=== PATIENT | female | born 1950 | race African-American/Black ===

== ENCOUNTER 2021-06-05 12:52 | Inpatient (IN) | payer OTHER, MEDICARE ==
[~2021-06-05] VITALS: Ht 157.5 cm; Wt 74.8 kg
[2021-06-05 12:52] VITALS: BP 125/69
[~2021-06-05 12:52] MED LIST changes: -NORCO5 PO; -TRAMADOL 50 MG50 MG PO
[2021-06-05 15:19] LABS: ABSOLUTE NEUTROPHILS 6.3 thou/uL (1.4-8.2); EOSINOPHILS 0.9 % (0.0-3.0); HEMATOCRIT 41.2 % (37.0-47.0); LYMPHOCYTES 29.5 % (24.0-44.0); MCH 31.7 pg (26.0-34.0); MCV 93.3 fL (80.0-100.0); MONOCYTES 4.7 % (1.0-8.0); PLATELET COUNT 332 thou/uL (150-400); POLYS 63.9 % (36.0-66.0); RBC 4.42 mil/uL (4.20-5.00); RDW 13.4 % (10.5-14.5); WBC 9.8 thou/uL (4.0-11.0)
[2021-06-05 15:30] LABS: CALCIUM 8.9 mg/dL (8.5-10.1); POTASSIUM 3.6 mmol/L (3.5-5.1)
[2021-06-05 15:36] LABS: ALBUMIN 3.5 g/dL (3.4-5.0); TOTAL BILIRUBIN 0.4 mg/dL (0.2-1.0); TOTAL PROTEIN 7.6 g/dL (6.4-8.2)
--- NOTE | 2021-06-05 17:46 | NUR ---
spoke with dr rojo. told him pt at at 12. he said he was hoping to do her surgery but needed 8 hours and would figure out what he needed to do
--- NOTE | 2021-06-06 04:33 | NUR ---
PT ARRIVED TO UNIT APPROX 2127, PT DROWSY/SEDATED, BELONGINGS LOGGED, ADMISSION PACKET PROVIDED, PT ORIENTED TO ROOM, CONSENTS TO BE OBTAINED AT A LATER TIME. UPON ADMISSION ASSESSMENT, PT REMAINS DROWSY/SEDATED, OTHERWISE AOX4, ANSWERING ORIENTATION PROMPTS APPROPRIATELY. PT REPORTS 3-4/10 PAIN IN LLQ OF ABDOMEN. PT RECEIVING PRN IV DILAUDID Q2HR WITH PRN PO TRAMADOL Q6HR AVAILABLE. PT DENIES SOB WHILE ON 2L O2 VIA NC. PT WITHOUT PO INTAKE, DUE TO REPORTS OF NAUSEA WITHOUT EMESIS. PT RECEIVING PRN ZOFRAN Q6HR. PT AMBULATING WITH X1 ASSIST TO BATHROOM, OTHERWISE VOIDING PER BEDPAN, LIGHT YELLOW URINE NOTED. PT RESTING IN BED THROUGHOUT SHIFT, FREQUENT REPOSITIONING ENCOURAGED, PT NOTED TO SHIFT SLIGHTLY ON HER OWN, REPOSITIONING ASSISTANCE PROVIDED. SENSATION INTACT, CAPILLARY REFILL LESS THAN 3SEC, PERIPHERAL PULSES PALPABLE IN ALL EXTREMITIES. PT ENCOURAGED TO NOTIFY STAFF FOR ALL NEEDS, CALL LIGHT WITHIN REACH, BED ALARM ON, BED LOCKED IN LOWEST POSITION, ROOM REMAINS NEAR NURSES STATION, FREQUENT MONITORING WILL CONTINUE.
[2021-06-06 05:14] VITALS: BP 127/73
[2021-06-06 06:06] LABS: HEMATOCRIT 41.2 % (37.0-47.0); HEMOGLOBIN 13.8 gm/dL (12.0-15.0); MCH 31.4 pg (26.0-34.0); MCHC 33.3 g/dL (28.0-37.0); MCV 94.2 fL (80.0-100.0); RBC 4.38 mil/uL (4.20-5.00); RDW 13.8 % (10.5-14.5); WBC 11.2 thou/uL (4.0-11.0)
[2021-06-06 06:33] LABS: ALBUMIN 3.4 g/dL (3.4-5.0); CALCIUM 8.6 mg/dL (8.5-10.1); PHOSPHORUS 2.9 mg/dL (2.6-4.7); POTASSIUM 3.4 mmol/L (3.5-5.1)
[2021-06-06 08:41] VITALS: BP 121/66
--- NOTE | 2021-06-06 10:15 | NUR ---
Assumed care of pt at 0700. Pt a&ox4. Incisions clean and well-approximated. Pain controlled with prn pain medicaitions. IVF infusing Possible d/c to home later today. Call light within reach. Will continue to monitor.
--- NOTE | 2021-06-06 12:01 | EKG ---
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: PACO : 1950 Requested By: Erich Marte Order Number: [id number] MD: Cristopher Dunlap Measurements Intervals [place] Rate: 63 P: 13 MI: 109 QRS: 51 QRSD: 93 T: 5 QT: 421 QTc: 431 Interpretive Statements Sinus rhythm Short MI interval Borderline T wave abnormalities Compared to ECG 11/14/2014 14:09:46 T-wave abnormality now present Electronically Signed On 06-06-2021 12:01:41 [employer] by Cristopher Dunlap [email or web address] <ELECTRONICALLY SIGNED> By: Cristopher Dunlap MD, [facility] 06/06/21 1201 1603 02 Cristopher Dunlap MD, FACC /EPI
[2021-06-06] MEDS ORDERED: NORCO5 PO (12:27)
[2021-06-06 12:33] VITALS: BP 121/66
[2021-06-06] MEDS ORDERED: TRAMADOL 50 MG50 MG PO (13:42)
--- NOTE | 2021-06-10 16:06 | PATH ---
[facility] [place] [address] PATHOLOGY RPT PROCEDURE Name: CLIFF HUSTON Room #: 445-P [facility] IN M.R.#: [id number] Admission: 06/05/21 Date of : 54 Discharge: 06/06/21 Report #: [id number] Path Case #: [id number] [facility] Accession Number: [id number] . 01 Material submitted: . appendix - APPENDIX . 01 Clinical history: . LAPAROSCOPIC APPENDECTOMY APPENDICITIS . 02 Diagnosis: Appendix, appendectomy: - Acute appendicitis with serositis. . (ANK:kandace; 06/10/2021) [facility] 06/10/2021 1132 Local . 02 Electronically signed: . Margie Zhang MD, Pathologist NPI- [id number] . 01 Gross description: . Fixative: Formalin Labeled: Appendix Appendix length: 5.6 cm Appendix diameter: 1.2 cm Mesoappendix: 1.7 cm Proximal margin: Stapled Serosa: Nash-siu and smooth to slightly roughened Cut surface: Pinpoint to dilated Luminal diameter: Up to 0.5 cm Perforation: None identified Lesions/abnormalities: None identified . Proximal margin and bisected tip in cassette A1. Additional small business representative cross-sections in cassette A2. ([facility]; 06/09/2021) NRI/NRI 06/09/2021 2107 Local . 02 Pathologist provided ICD-10: K35.80, K65.8 . 02 CPT . 272725 Specimen Comment: A courtesy copy of this report has been sent to [phone] Specimen Comment: Report sent to [address] [address] PATHOLOGY RPT PROCEDURE Name: CLIFF HUSTON Room #: 445-P DIS IN M.R.#: [id number] Admission: 06/05/21 Date of : 54 Discharge: 06/06/21 Report #: [id number] Path Case #: [id number] [facility] at: [facility] [address] [facility] [address], [place] [id number] MD Josh Oniell MD Phone: [phone] Performed at: [address] [id number] Zhang DR Phone: [phone]
== END 2021-06-06 13:16 | disposition home or self-care (01) | DRG 343 ==
LOC: ER 12:52 → EROBS 18:18 → 4S 21:28
PROVIDERS: Emergency Medicine; ADMIT Surgery; ATTEND Surgery
PROC: 0DTJ4ZZ Resection of Appendix, Percutaneous Endoscopic Approach (ICD-10-PCS; principal; 2021-06-05)
DX: K35.80 Unspecified acute appendicitis (principal); K21.9 Gastro-esophageal reflux disease without esophagitis; I10 Essential (primary) hypertension; F17.210 Nicotine dependence, cigarettes, uncomplicated; E11.9 Type 2 diabetes mellitus without complications; Z20.822 Contact with and (suspected) exposure to COVID-19; Z28.21 Immunization not carried out because of patient refusal; Z88.6 Allergy status to analgesic agent; Z88.0 Allergy status to penicillin
CPT/HCPCS: 10102; 50010; 50101; 50411; 50555; 50739; 52265; 53307; 53310; 53312; 54022; 54118; 56525; 56526; 58574; 58867; 58868; 58911; 62110; 62900; 70005

== ENCOUNTER → 2021-06-05 | Outpatient (CLI) | payer OTHER, MEDICARE ==
[~2021-06-05] MED LIST: AMLODIPINE BESY10 MG PO; MAXZIDE-25 MG1 EACH PO; NORCO5 PO; PANTOPRAZOLE SO40 M1 PO; PEPCID40 MG PO; TRAMADOL 50 MG50 MG PO
== END ==
LOC: CAT 08:46
PROVIDERS: ATTEND Family Medicine
DX: K35.890 Other acute appendicitis without perforation or gangrene (principal); K57.30 Diverticulosis of large intestine without perforation or abscess without bleeding; K76.0 Fatty (change of) liver, not elsewhere classified; N28.1 Cyst of kidney, acquired

== ENCOUNTER → 2021-07-31 | Outpatient (CLI) | payer OTHER, MEDICARE ==
[~2021-07-31] MED LIST changes: +ALPRAZOLAM1 MG PO; +BIOTIN2500 MCG PO; +GLUCOPHAGE XR750 MG PO; +MYSOLINE50 MG PO; +NORCO5 PO; +TRAMADOL 50 MG50 MG PO; +VITAMIN C1000 MG PO
== END ==
LOC: LAB 11:52
PROVIDERS: ATTEND Student in an Organized Health Care Education/Training Program
DX: Z01.812 Encounter for preprocedural laboratory examination (principal); Z20.822 Contact with and (suspected) exposure to COVID-19

== ENCOUNTER → 2021-08-04 | Outpatient (CLI) | payer OTHER, MEDICARE ==
[~2021-08-04] VITALS: Ht 160 cm; Wt 77.1 kg
--- NOTE | 2021-08-06 10:08 | PATH ---
[facility] [address] [place] [address] PATHOLOGY RPT PROCEDURE Name: EMILY HUSTON Room #: REG Nir Priscilla.#: [id number] Admission: 08/04/21 Date of : 54 Discharge: Report #: [id number] Path Case #: [id number] [facility] Accession Number: [id number] . 01 Material submitted: . colon - TRANSVERSE COLON POLYP X2. Modifiers: transverse, X2 . 01 Clinical history: . COLONOSCOPY CRCS . 01 Diagnosis: Colonic mucosa "transverse colon polyp x 2": - Fragments of tubular adenoma. - There is no evidence of high-grade dysplasia or malignancy. (SHA:pit; 08/05/2021) QTP 08/05/2021 0917 Local . 01 Electronically signed: . Josh Oneill MD, Pathologist NPI- [id number] . 01 Gross description: . The specimen is received in formalin, labeled "Emily Huston, transverse colon polyp". Received are 2 segments of pale siu to light brown tissue measuring 0.3 and 0.5 cm in maximum dimensions. The specimen is entirely submitted in cassette A1. ([facility]; 08/04/2021) NRI/NRI 08/04/2021 1556 Local . 01 Pathologist provided ICD-10: D12.3 . 01 CPT . 035332 Specimen Comment: A courtesy copy of this report has been sent to [phone] Specimen Comment: [phone] Specimen Comment: Report sent to / DR HARRIS Specimen Comment: A duplicate report has been generated due to demographic updates. Performed at: [address], [place] [id number] MD Josh Oneill MD Phone: [phone]
== END | disposition home or self-care (01) ==
LOC: GI 05:47
PROVIDERS: ATTEND Internal Medicine
DX: Z12.11 Encounter for screening for malignant neoplasm of colon (principal); Z86.010 Personal history of colon polyps; D12.3 Benign neoplasm of transverse colon; K57.30 Diverticulosis of large intestine without perforation or abscess without bleeding; I10 Essential (primary) hypertension; E11.9 Type 2 diabetes mellitus without complications; F17.210 Nicotine dependence, cigarettes, uncomplicated; K21.9 Gastro-esophageal reflux disease without esophagitis; Z98.890 Other specified postprocedural states; Z79.899 Other long term (current) drug therapy; Z86.73 Personal history of transient ischemic attack (TIA), and cerebral infarction without residual deficits; Z88.0 Allergy status to penicillin; Z88.2 Allergy status to sulfonamides; Z88.8 Allergy status to other drugs, medicaments and biological substances
CPT/HCPCS: 62110; 62900